=== PATIENT | male | born 1945 | race Asian ===

== ENCOUNTER 2017-02-04 13:58 | Outpatient (CLI) | payer OTHER ==
[2017-02-04 15:06] LABS: PLATELET COUNT 213 K/uL (142-355)
[2017-02-04 15:20] LABS: POTASSIUM 4.1 mmol/L (3.6-5.2); SODIUM 142 mmol/L (136-145)
== END 2017-02-04 15:30 | disposition home or self-care (01) ==
LOC: LABW 13:58
DX: E11.9 Type 2 diabetes mellitus without complications (principal); I50.9 Heart failure, unspecified; I73.89 Other specified peripheral vascular diseases
CPT/HCPCS: 36415; 80053; 80061; 83036; 83880; 85027

== ENCOUNTER 2017-04-08 16:17 | Emergency (ER) | payer OTHER ==
[~2017-04-08] VITALS: Ht 190.5 cm; Wt 95.3 kg
[2017-04-08 17:31] LABS: PLATELET COUNT 215 K/uL (142-355)
[2017-04-08 17:39] LABS: POTASSIUM 3.9 mmol/L (3.6-5.2)
[2017-04-08 18:03] LABS: PARTIAL THROMBOPLASTIN TIME 39.9 SECONDS (24.5-33.6)
[2017-04-08 18:55] VITALS: BP 166/78; TEMP 98.4
== END 2017-04-08 18:56 | disposition home or self-care (01) ==
LOC: ED 16:17
DX: D68.69 Other thrombophilia (principal); R79.1 Abnormal coagulation profile
CPT/HCPCS: 80053; 81000; 85027; 85610; 85730; 96372; 99283

== ENCOUNTER 2017-07-19 15:37 | Outpatient (CLI) | payer OTHER | END 2017-07-19 19:43 | disposition home or self-care (01) | LOC: LABW 15:37 | DX: N40.0 Benign prostatic hyperplasia without lower urinary tract symptoms (principal); Z12.5 Encounter for screening for malignant neoplasm of prostate | CPT/HCPCS: 84153 ==

== ENCOUNTER 2017-12-30 13:13 | Outpatient (CLI) | payer OTHER ==
[2017-12-30 14:01] LABS: POTASSIUM 4.4 mmol/L (3.6-5.2)
== END 2017-12-30 19:40 | disposition home or self-care (01) ==
LOC: LABW 13:13
PROVIDERS: Specialist
DX: Z79.899 Other long term (current) drug therapy (principal); Z51.81 Encounter for therapeutic drug level monitoring; I10 Essential (primary) hypertension
CPT/HCPCS: 36415; 80048

== ENCOUNTER 2018-02-05 11:51 | Emergency (ER) | payer OTHER ==
[~2018-02-05] VITALS: Ht 190.5 cm; Wt 97.5 kg
[2018-02-05 12:54] LABS: PLATELET COUNT 185 K/uL (142-355)
[2018-02-05 13:00] LABS: POTASSIUM 4.6 mmol/L (3.6-5.2)
[2018-02-05 15:15] VITALS: BP 138/57; TEMP 98.1
== END 2018-02-05 15:15 | disposition home or self-care (01) ==
LOC: ED 11:51
PROVIDERS: Allergy & Immunology
DX: E11.65 Type 2 diabetes mellitus with hyperglycemia (principal); R00.1 Bradycardia, unspecified; I45.10 Unspecified right bundle-branch block
CPT/HCPCS: 80053; 81000; 85027; 93005; 96361; 96365; 96375; 99284; J1815

== ENCOUNTER 2018-04-12 12:33 | Outpatient (CLI) | payer OTHER | END 2018-04-12 22:45 | disposition home or self-care (01) | LOC: LABW 12:33 | DX: E11.9 Type 2 diabetes mellitus without complications (principal) | CPT/HCPCS: 36415; 83036 ==

== ENCOUNTER 2018-04-19 16:36 | Outpatient (CLI) | payer OTHER | END 2018-04-19 21:28 | disposition home or self-care (01) | LOC: LABW 16:36 | DX: I48.0 Paroxysmal atrial fibrillation (principal); Z79.01 Long term (current) use of anticoagulants | CPT/HCPCS: 36415; 85610 ==

== ENCOUNTER 2018-05-24 12:07 | Outpatient (CLI) | payer OTHER | END 2018-05-24 21:07 | disposition home or self-care (01) | LOC: LABW 12:07 | DX: I48.0 Paroxysmal atrial fibrillation (principal); Z79.899 Other long term (current) drug therapy; Z79.01 Long term (current) use of anticoagulants | CPT/HCPCS: 36415; 85610 ==

== ENCOUNTER 2018-05-26 11:04 | Outpatient (CLI) | payer OTHER | END 2018-05-26 19:24 | disposition home or self-care (01) | LOC: LABW 11:04 | DX: Z79.01 Long term (current) use of anticoagulants (principal); Z79.899 Other long term (current) drug therapy | CPT/HCPCS: 36415; 85610 ==

== ENCOUNTER 2018-06-22 17:36 | Emergency (ER) | payer OTHER ==
[~2018-06-22] VITALS: Ht 190.5 cm; Wt 97.5 kg
[2018-06-22 18:42] LABS: PLATELET COUNT 241 K/uL (142-355)
[2018-06-22 18:54] LABS: POTASSIUM 3.9 mmol/L (3.6-5.2)
[2018-06-22 20:18] VITALS: BP 126/91; TEMP 98.2
== END 2018-06-22 20:15 | disposition home or self-care (01) ==
LOC: ED 17:36
PROVIDERS: Emergency Medicine
DX: E86.0 Dehydration (principal); I95.89 Other hypotension; R42 Dizziness and giddiness; I48.91 Unspecified atrial fibrillation; I45.19 Other right bundle-branch block
CPT/HCPCS: 36415; 80053; 81000; 82550; 82553; 84484; 85027; 93005; 96360; 99284; J2405

== ENCOUNTER 2018-07-08 10:14 | Outpatient (CLI) | payer OTHER | END 2018-07-08 19:13 | disposition home or self-care (01) | LOC: LABW 10:14 | DX: I48.0 Paroxysmal atrial fibrillation (principal); Z79.01 Long term (current) use of anticoagulants | CPT/HCPCS: 36415; 85610 ==

== ENCOUNTER 2018-07-11 10:41 | Outpatient (CLI) | payer OTHER ==
[2018-07-11 11:22] LABS: POTASSIUM 3.8 mmol/L (3.6-5.2)
== END 2018-07-11 22:19 | disposition home or self-care (01) ==
LOC: LABW 10:41
PROVIDERS: Nurse Practitioner Adult Health
DX: I25.10 Atherosclerotic heart disease of native coronary artery without angina pectoris (principal); Z79.899 Other long term (current) drug therapy; I48.0 Paroxysmal atrial fibrillation; Z79.01 Long term (current) use of anticoagulants
CPT/HCPCS: 36415; 80048; 85610

== ENCOUNTER 2018-08-12 22:05 | Emergency (ER) | payer OTHER ==
[~2018-08-12] VITALS: Ht 195.6 cm; Wt 104.3 kg
[2018-08-12 23:30] LABS: PLATELET COUNT 184 K/uL (142-355)
[2018-08-12 23:43] LABS: PARTIAL THROMBOPLASTIN TIME 24.3 SECONDS (24.5-33.6)
[2018-08-13 01:05] VITALS: BP 132/52; TEMP 98.1
== END 2018-08-13 01:05 | disposition home or self-care (01) ==
LOC: ED 22:05
PROVIDERS: Emergency Medicine
DX: E11.9 Type 2 diabetes mellitus without complications (principal); Z79.4 Long term (current) use of insulin; Z91.14 Patient's other noncompliance with medication regimen; R00.1 Bradycardia, unspecified; I45.19 Other right bundle-branch block; I48.91 Unspecified atrial fibrillation; S50.811A Abrasion of right forearm, initial encounter; W18.39XA Other fall on same level, initial encounter; Y92.89 Other specified places as the place of occurrence of the external cause
CPT/HCPCS: 80053; 81000; 82550; 84484; 85027; 85610; 85730; 93005; 96372; 99283; J1815

== ENCOUNTER 2018-08-25 09:08 | Emergency (ER) | payer OTHER, MEDICARE ==
[~2018-08-25] VITALS: Ht 190.5 cm; Wt 104.3 kg
[2018-08-25 09:10] VITALS: TEMP 98.5
[2018-08-25 09:51] LABS: PLATELET COUNT 240 K/uL (142-355)
[2018-08-25 10:07] LABS: POTASSIUM 4.2 mmol/L (3.6-5.2); SODIUM 139 mmol/L (136-145)
[2018-08-25 10:08] LABS: PARTIAL THROMBOPLASTIN TIME 28.8 SECONDS (24.5-33.6)
[2018-08-25] MEDS ORDERED: LIPITOR40 MG PO (10:36)
[2018-08-25] MEDS ORDERED: AMIODARONE HYD200 MG PO (10:36)
[2018-08-25] MEDS ORDERED: SINEMET1 TA3 PO (10:42)
[2018-08-25] MEDS ORDERED: WARF10TA5 PO (10:42)
[2018-08-25] MEDS ORDERED: GABA300C2 PO (10:43)
[2018-08-25] MEDS ORDERED: HYDRALAZINE10 MG PO (10:43)
[2018-08-25] MEDS ORDERED: GLIP10TA55 PO (10:43)
[2018-08-25] MEDS ORDERED: FURO40TA93 PO (10:44)
[2018-08-25] MEDS ORDERED: LISI10TA11 PO (10:44)
[2018-08-25] MEDS ORDERED: KLOR-CON M2020 MEQ PO (10:44)
[2018-08-25] MEDS ORDERED: METFORMIN HYDR850 MG PO (10:45)
[2018-08-25] MEDS ORDERED: PROPRANOLOL80 MG PO (10:46)
[2018-08-25] MEDS ORDERED: TIZANIDINE HYDRO4 MG PO (10:46)
[2018-08-25] MEDS ORDERED: PRIM50TA4 PO (10:46)
[2018-08-25] MEDS ORDERED: MIRAPEX0.125 MG PO (10:50)
[2018-08-25] MEDS ORDERED: TOUJEO MAX300 UNIT/M SC (10:55)
[2018-08-25 16:09] VITALS: BP 107/81
== END 2018-08-25 16:09 | disposition home or self-care (01) ==
LOC: ED 09:08
PROVIDERS: Emergency Medicine
DX: I48.91 Unspecified atrial fibrillation (principal); K85.80 Other acute pancreatitis without necrosis or infection; I45.19 Other right bundle-branch block
CPT/HCPCS: 36415; 80053; 82550; 83690; 83735; 83880; 84484; 85027; 85610; 85730; 93005; 96374; 96375; 99284; J2270; J2405; J3490

== ENCOUNTER 2018-09-16 09:26 | Outpatient (CLI) | payer OTHER, MEDICARE ==
[~2018-09-16 09:26] MED LIST: AMIODARONE HYD200 MG PO; FURO40TA93 PO; GABA300C2 PO; GLIP10TA55 PO; HYDRALAZINE10 MG PO; KLOR-CON M2020 MEQ PO; LIPITOR40 MG PO; LISI10TA11 PO; METFORMIN HYDR850 MG PO; MIRAPEX0.125 MG PO; PRIM50TA4 PO; PROPRANOLOL80 MG PO; SINEMET1 TA3 PO; TIZANIDINE HYDRO4 MG PO; TOUJEO MAX300 UNIT/M SC; WARF10TA5 PO
[2018-09-16 11:21] LABS: POTASSIUM 3.8 mmol/L (3.6-5.2)
== END 2018-09-16 19:46 | disposition home or self-care (01) ==
LOC: LABW 09:26
PROVIDERS: Internal Medicine
DX: E11.9 Type 2 diabetes mellitus without complications (principal); E78.2 Mixed hyperlipidemia; I10 Essential (primary) hypertension; Z00.00 Encounter for general adult medical examination without abnormal findings
CPT/HCPCS: 36415; 80053; 80061; 82043; 82570; 83036; 83735; 84443

== ENCOUNTER 2018-09-27 07:47 | Outpatient (CLI) | payer OTHER, MEDICARE ==
[~2018-09-27] VITALS: Ht 190.5 cm; Wt 102.1 kg
== END 2018-09-27 21:04 | disposition home or self-care (01) ==
LOC: NM 07:47
DX: R07.89 Other chest pain (principal)
CPT/HCPCS: A9500; J2785

== ENCOUNTER 2018-11-11 14:11 | Emergency (ER) | payer OTHER, MEDICARE ==
[~2018-11-11] VITALS: Ht 190.5 cm; Wt 104.3 kg
[2018-11-11 14:28] VITALS: TEMP 98.1
[2018-11-11 16:00] VITALS: BP 132/72
[2018-11-11 16:29] LABS: PLATELET COUNT 208 K/uL (142-355)
[2018-11-11 16:38] LABS: POTASSIUM 4.1 mmol/L (3.6-5.2)
== END 2018-11-11 17:30 | disposition home or self-care (01) ==
LOC: ED 14:11
PROVIDERS: Emergency Medicine
DX: K52.89 Other specified noninfective gastroenteritis and colitis (principal); K29.60 Other gastritis without bleeding
CPT/HCPCS: 74022; 80053; 85027; 99283

== ENCOUNTER 2018-12-08 18:50 | Emergency (ER) | payer OTHER, MEDICARE ==
[~2018-12-08] VITALS: Ht 190.5 cm; Wt 104.3 kg
[2018-12-08 20:34] LABS: POTASSIUM 4.5 mmol/L (3.6-5.2)
[2018-12-08 21:06] LABS: PLATELET COUNT 172 K/uL (142-355)
[2018-12-08 23:40] VITALS: BP 158/70; TEMP 98.2
== END 2018-12-08 23:40 | disposition home or self-care (01) ==
LOC: ED 18:50
PROVIDERS: Student in an Organized Health Care Education/Training Program
DX: E11.65 Type 2 diabetes mellitus with hyperglycemia (principal); Z79.4 Long term (current) use of insulin; R00.1 Bradycardia, unspecified; I45.19 Other right bundle-branch block
CPT/HCPCS: 36415; 36600; 80048; 81000; 82805; 82962; 83735; 84484; 85027; 93005; 96360; 96361; 96374; 96376; 99284; J1815

== ENCOUNTER 2019-02-05 20:37 | Outpatient (CLI) | payer OTHER, MEDICARE | END 2019-02-05 20:49 | disposition short-term general hospital (02) | LOC: AMB 20:37 | DX: I47.1 Supraventricular tachycardia (principal); W18.39XA Other fall on same level, initial encounter; Y93.89 Activity, other specified; Y92.018 Other place in single-family (private) house as the place of occurrence of the external cause | CPT/HCPCS: A0425; A0427 ==

== ENCOUNTER 2019-02-05 21:03 | Emergency (ER) | payer OTHER, MEDICARE ==
[~2019-02-05] VITALS: Ht 190.5 cm; Wt 104.3 kg
[2019-02-05 21:05] VITALS: TEMP 97.7
[2019-02-05 21:12] LABS: PLATELET COUNT 210 K/uL (142-355)
[2019-02-05 22:16] LABS: PARTIAL THROMBOPLASTIN TIME 22.3 SECONDS (24.5-33.6)
[2019-02-05 22:23] LABS: POTASSIUM 3.7 mmol/L (3.6-5.2); SODIUM 139 mmol/L (136-145)
[2019-02-05 22:56] VITALS: BP 152/80
== END 2019-02-05 23:11 | disposition home or self-care (01) ==
LOC: ED 21:03
PROVIDERS: Hospitalist
DX: I47.1 Supraventricular tachycardia (principal); E11.65 Type 2 diabetes mellitus with hyperglycemia; I48.91 Unspecified atrial fibrillation; Z79.01 Long term (current) use of anticoagulants; R06.02 Shortness of breath; I45.19 Other right bundle-branch block; W18.39XA Other fall on same level, initial encounter; Y92.89 Other specified places as the place of occurrence of the external cause
CPT/HCPCS: 36415; 80053; 80320; 82550; 83880; 84484; 85027; 85610; 85730; 93005; 96372; 99284; J1815

== ENCOUNTER 2019-05-31 12:39 | Outpatient (CLI) | payer OTHER, MEDICARE ==
[2019-05-31 13:17] LABS: POTASSIUM 4.5 mmol/L (3.6-5.2)
[2019-05-31 13:20] LABS: PLATELET COUNT 184 K/uL (142-355)
== END 2019-05-31 20:03 | disposition home or self-care (01) ==
LOC: LABW 12:39
PROVIDERS: Surgery Vascular Surgery
DX: Z01.812 Encounter for preprocedural laboratory examination (principal); I70.412 Atherosclerosis of autologous vein bypass graft(s) of the extremities with intermittent claudication, left leg
CPT/HCPCS: 36415; 80048; 85027

== ENCOUNTER 2019-06-13 08:52 | Outpatient (CLI) | payer OTHER, MEDICARE | END 2019-06-13 20:06 | disposition home or self-care (01) | LOC: LABW 08:52 | PROVIDERS: Nurse Practitioner Adult Health | DX: I48.0 Paroxysmal atrial fibrillation (principal); E11.9 Type 2 diabetes mellitus without complications; I10 Essential (primary) hypertension; E55.9 Vitamin D deficiency, unspecified; E78.2 Mixed hyperlipidemia | CPT/HCPCS: 36415; 80053; 80061; 81000; 82043; 82306; 82570; 83036; 84436; 84443; 84479 ==

== ENCOUNTER 2019-09-20 10:17 | Outpatient (CLI) | payer OTHER, MEDICARE ==
[2019-09-20 11:01] LABS: POTASSIUM 3.7 mmol/L (3.6-5.2)
[2019-09-20 11:11] LABS: PLATELET COUNT 206 K/uL (142-355)
== END 2019-09-20 19:29 | disposition home or self-care (01) ==
LOC: LAB 10:17
PROVIDERS: Internal Medicine
DX: I10 Essential (primary) hypertension (principal); G25.0 Essential tremor; K21.9 Gastro-esophageal reflux disease without esophagitis; E78.2 Mixed hyperlipidemia; M25.561 Pain in right knee; E53.8 Deficiency of other specified B group vitamins; E55.9 Vitamin D deficiency, unspecified; Z79.899 Other long term (current) drug therapy
CPT/HCPCS: 80053; 82306; 82607; 83036; 85027

== ENCOUNTER 2019-11-08 13:11 | Emergency (ER) | payer OTHER, MEDICARE ==
[~2019-11-08] VITALS: Ht 190.5 cm; Wt 107.5 kg
[2019-11-08 13:55] LABS: POTASSIUM 3.9 mmol/L (3.6-5.2); SODIUM 138 mmol/L (136-145)
[2019-11-08 14:00] LABS: PLATELET COUNT 196 K/uL (142-355)
[2019-11-08 17:45] VITALS: BP 145/73; TEMP 97.3
== END 2019-11-08 17:59 | disposition home or self-care (01) ==
LOC: ED 13:11
PROVIDERS: Emergency Medicine
DX: R07.89 Other chest pain (principal)
CPT/HCPCS: 80053; 82550; 82553; 84484; 85027; 85379; 93005; 99284

== ENCOUNTER 2019-12-20 10:04 | Outpatient (CLI) | payer OTHER, MEDICARE ==
[2019-12-20 10:55] LABS: POTASSIUM 4.5 mmol/L (3.6-5.2)
== END 2019-12-20 19:47 | disposition home or self-care (01) ==
LOC: LAB 10:04
PROVIDERS: Internal Medicine
DX: E11.9 Type 2 diabetes mellitus without complications (principal); E55.9 Vitamin D deficiency, unspecified; E78.2 Mixed hyperlipidemia; I10 Essential (primary) hypertension; I48.91 Unspecified atrial fibrillation
CPT/HCPCS: 80053; 80061; 81000; 82043; 82306; 82570; 83036

== ENCOUNTER 2020-06-14 11:33 | Outpatient (CLI) | payer OTHER ==
[2020-06-14 12:04] LABS: POTASSIUM 4.4 mmol/L (3.6-5.2)
== END 2020-06-14 19:23 | disposition home or self-care (01) ==
LOC: LABW 11:33
PROVIDERS: ATTEND Nurse Practitioner Adult Health
DX: E78.2 Mixed hyperlipidemia (principal); Z79.899 Other long term (current) drug therapy; I48.0 Paroxysmal atrial fibrillation
CPT/HCPCS: 36415; 80048; 80061; 80076; 84436; 84443; 84479; 85610

== ENCOUNTER 2020-06-21 13:48 | Inpatient (IN) | payer OTHER ==
[2020-06-21] VITALS (7 sets, daily range): BP systolic 115–154; BP diastolic 55–64; TEMP 97.3–100.2; Ht 190.5 cm; Wt 104.0 kg
[~2020-06-21] VITALS: Ht 190.5 cm; Wt 104.0 kg
[2020-06-21] MEDS ORDERED: LISI20TA11 PO (13:55)
[2020-06-21] MEDS ORDERED: WARF7.5T5 PO (13:55)
[2020-06-21] MEDS ORDERED: CARDIZEM LA360 M1 PO (13:56)
[2020-06-21] MEDS ORDERED: WARF5TAB6 PO (13:57)
[2020-06-21] MEDS ORDERED: NEURONTIN 100M100 MG PO (13:59)
[2020-06-21] MEDS ORDERED: AMIODARONE PO (13:59)
[2020-06-21] MEDS ORDERED: JANUVIA100 MG PO (14:00)
[2020-06-21] MEDS ORDERED: POTASSI20 XX (14:00)
[2020-06-21] MEDS ORDERED: HYDRALAZINE25 MG PO (14:01)
[2020-06-21] MEDS ORDERED: LIPITOR40 MG PO (14:01)
[2020-06-21] MEDS ORDERED: CARV3.12 PO (14:02)
[2020-06-21 14:24] LABS: PLATELET COUNT 135 K/uL (142-355)
[2020-06-21 14:40] LABS: PARTIAL THROMBOPLASTIN TIME 25.6 SECONDS (24.5-33.6)
[2020-06-22] VITALS: BP 126/53; TEMP 99.6
[2020-06-22] MEDS ORDERED: JANTOVEN10 MG PO (01:36)
[2020-06-22] MEDS ORDERED: JANTOVEN5 MG PO (01:38)
[2020-06-22 04:00] VITALS: BP 174/92; TEMP 98
[2020-06-22 05:10] LABS: POTASSIUM 4.8 mmol/L (3.6-5.2)
[2020-06-22 05:12] LABS: PLATELET COUNT 136 K/uL (142-355)
[2020-06-22 08:00] VITALS: BP 151/72; TEMP 97.8
[2020-06-22] MEDS ORDERED: PRAMIPEXOLE0.25 MG PO (10:39)
[2020-06-22 12:00] VITALS: BP 142/59; TEMP 97.9
[2020-06-22 16:00] VITALS: BP 139/70; TEMP 97.9
[2020-06-22 20:00] VITALS: BP 133/69; TEMP 98.7
[2020-06-23] VITALS: BP 163/79; TEMP 97.7
[2020-06-23 04:00] VITALS: BP 144/71; TEMP 97.3
[2020-06-23 06:32] LABS: PLATELET COUNT 144 K/uL (142-355)
[2020-06-23 06:55] LABS: POTASSIUM 4.8 mmol/L (3.6-5.2)
[2020-06-23 08:00] VITALS: BP 149/77; TEMP 97.9
[2020-06-23] MEDS ORDERED: AZIT250T3 PO (09:57)
[2020-06-23] MEDS ORDERED: GABA300C2 PO (09:57)
[2020-06-23] MEDS ORDERED: IPRAAER INH (09:57)
[2020-06-23] MEDS ORDERED: LISI20TA11 PO (09:57)
[2020-06-23] MEDS ORDERED: ATOR20TA2 PO (09:57)
[2020-06-23] MEDS ORDERED: POTA20TA4 PO (09:57)
[2020-06-23] MEDS ORDERED: HYDR25TA57 PO (09:57)
[2020-06-23] MEDS ORDERED: ZINC220C4 PO (09:57)
[2020-06-23] MEDS ORDERED: DEXA4INJ21 PO (09:57)
[2020-06-23] MEDS ORDERED: CARV3.12 PO (09:57)
[2020-06-23] MEDS ORDERED: FURO10IN15 IV (09:57)
[2020-06-23] MEDS ORDERED: SITA50TA2 PO (09:57)
[2020-06-23] MEDS ORDERED: ASCO500T18 PO (09:57)
[2020-06-23] MEDS ORDERED: CARDIZEM CD 180 MG PO (09:57)
== END 2020-06-23 10:50 | disposition home or self-care (01) | DRG 177 ==
LOC: ED 13:48 → MED/SURG 17:00
PROVIDERS: ADMIT Hospitalist
DX: U07.1 COVID-19 (principal); J18.8 Other pneumonia, unspecified organism; R53.81 Other malaise; E86.1 Hypovolemia; I25.10 Atherosclerotic heart disease of native coronary artery without angina pectoris; I48.91 Unspecified atrial fibrillation; I11.0 Hypertensive heart disease with heart failure; I50.9 Heart failure, unspecified; F03.90 Unspecified dementia, unspecified severity, without behavioral disturbance, psychotic disturbance, mood disturbance, and anxiety; G20 Parkinson's disease; I25.2 Old myocardial infarction; E86.0 Dehydration; W18.39XA Other fall on same level, initial encounter; Y92.89 Other specified places as the place of occurrence of the external cause
CPT/HCPCS: 36415; 80048; 80053; 81000; 82962; 85027; 85610; 85730; 87635; 93005; 94760; 96372; 99282; J1100; J1650; J1815; J1885; J1940; U0003

== ENCOUNTER 2020-08-27 08:01 | Outpatient (CLI) | payer OTHER ==
[~2020-08-27 08:01] MED LIST changes: +AMIODARONE PO; +ASCO500T18 PO; +ATOR20TA2 PO; +AZIT250T3 PO; +CARDIZEM CD 180 MG PO; +CARDIZEM LA360 M1 PO; +CARV3.12 PO; +DEXA4INJ21 PO; +FURO10IN15 IV; +HYDR25TA57 PO; +HYDRALAZINE25 MG PO; +IPRAAER INH; +JANTOVEN10 MG PO; +JANTOVEN5 MG PO; +JANUVIA100 MG PO; +LISI20TA11 PO; +NEURONTIN 100M100 MG PO; +POTA20TA4 PO; +POTASSI20 XX; +PRAMIPEXOLE0.25 MG PO; +SITA50TA2 PO; +WARF5TAB6 PO; +WARF7.5T5 PO; +ZINC220C4 PO
== END 2020-08-27 19:34 | disposition home or self-care (01) ==
LOC: LABW 08:01
PROVIDERS: ATTEND Specialist
DX: I48.0 Paroxysmal atrial fibrillation (principal); Z79.899 Other long term (current) drug therapy; E78.2 Mixed hyperlipidemia
CPT/HCPCS: 36415; 80061; 80076; 84436; 84443; 84479

== ENCOUNTER 2020-09-23 10:22 | Outpatient (CLI) | payer OTHER | END 2020-09-23 21:37 | disposition home or self-care (01) | LOC: LABW 10:22 | PROVIDERS: ATTEND Internal Medicine Interventional Cardiology | DX: E78.2 Mixed hyperlipidemia (principal); Z79.899 Other long term (current) drug therapy; I48.21 Permanent atrial fibrillation | CPT/HCPCS: 36415; 80061; 80076; 84436; 84443; 84479 ==

== ENCOUNTER 2020-11-18 10:06 | Outpatient (CLI) | payer OTHER | END 2020-11-18 20:58 | disposition home or self-care (01) | LOC: LABW 10:06 | PROVIDERS: ATTEND Nurse Practitioner Adult Health | DX: I48.20 Chronic atrial fibrillation, unspecified (principal); Z51.81 Encounter for therapeutic drug level monitoring; Z79.01 Long term (current) use of anticoagulants | CPT/HCPCS: 36415; 85610 ==

== ENCOUNTER 2020-11-21 11:26 | Outpatient (CLI) | payer OTHER | END 2020-11-21 22:00 | disposition home or self-care (01) | LOC: LABW 11:26 | PROVIDERS: ATTEND Specialist | DX: Z79.01 Long term (current) use of anticoagulants (principal); I49.01 Ventricular fibrillation; I48.20 Chronic atrial fibrillation, unspecified; Z51.81 Encounter for therapeutic drug level monitoring | CPT/HCPCS: 36415; 85610 ==

== ENCOUNTER 2021-01-10 12:30 | Emergency (ER) | payer OTHER ==
[~2021-01-10] VITALS: Ht 190.5 cm; Wt 108.9 kg
[2021-01-10 12:30] VITALS: TEMP 98.8
[2021-01-10 12:55] LABS: PLATELET COUNT 193 K/uL (142-355)
[2021-01-10 13:08] LABS: POTASSIUM 4.5 mmol/L (3.6-5.2)
[2021-01-10 16:55] VITALS: BP 99/52
== END 2021-01-10 17:10 | disposition home or self-care (01) ==
LOC: ED 12:30
PROVIDERS: Family Medicine
DX: I95.89 Other hypotension (principal); R00.1 Bradycardia, unspecified; E11.65 Type 2 diabetes mellitus with hyperglycemia
CPT/HCPCS: 80053; 81000; 83880; 84484; 85027; 93005; 96360; 96361; 99284; J1815

== ENCOUNTER 2021-09-01 13:14 | Outpatient (CLI) | payer OTHER | END 2021-09-01 19:45 | disposition home or self-care (01) | LOC: MRI 13:14 | PROVIDERS: ATTEND Psychiatry & Neurology Neurology | DX: M48.02 Spinal stenosis, cervical region (principal); M48.062 Spinal stenosis, lumbar region with neurogenic claudication ==

== ENCOUNTER 2021-12-11 13:44 | Outpatient (CLI) | payer OTHER | END 2021-12-11 19:17 | disposition home or self-care (01) | LOC: MRI 13:44 | PROVIDERS: ATTEND Neurological Surgery | DX: M48.02 Spinal stenosis, cervical region (principal); F03.90 Unspecified dementia, unspecified severity, without behavioral disturbance, psychotic disturbance, mood disturbance, and anxiety ==

== ENCOUNTER 2022-01-02 16:19 | Outpatient (CLI) | payer OTHER | END 2022-01-02 20:01 | disposition home or self-care (01) | LOC: RAD 16:19 | PROVIDERS: ATTEND Internal Medicine | DX: M25.562 Pain in left knee (principal); M25.561 Pain in right knee ==

== ENCOUNTER 2022-04-04 10:04 | Outpatient (CLI) | payer OTHER | END 2022-04-04 19:20 | disposition home or self-care (01) | LOC: LABW 10:04 | PROVIDERS: ATTEND Nurse Practitioner Adult Health | DX: Z79.899 Other long term (current) drug therapy (principal) | CPT/HCPCS: 36415; 84436; 84443; 84479 ==

== ENCOUNTER 2022-09-14 13:16 | Outpatient (CLI) | payer OTHER ==
[2022-09-14 13:44] LABS: PLATELET COUNT 175 K/uL (142-355)
[2022-09-14 13:45] LABS: POTASSIUM 4.6 mmol/L (3.6-5.2)
== END 2022-09-14 21:39 | disposition home or self-care (01) ==
LOC: LABW 13:16
PROVIDERS: ATTEND Specialist
DX: I48.0 Paroxysmal atrial fibrillation (principal); E78.2 Mixed hyperlipidemia; I10 Essential (primary) hypertension
CPT/HCPCS: 36415; 80048; 85027

== ENCOUNTER 2022-11-20 17:10 | Outpatient (CLI) | payer OTHER | END 2022-11-20 19:03 | LOC: LABW 17:10 | PROVIDERS: ATTEND Nurse Practitioner Adult Health | DX: E78.2 Mixed hyperlipidemia (principal); I35.8 Other nonrheumatic aortic valve disorders; I48.0 Paroxysmal atrial fibrillation; R06.09 Other forms of dyspnea | CPT/HCPCS: 36415; 80048; 84436; 84443; 84479 ==

== ENCOUNTER 2022-11-25 12:28 | Outpatient (CLI) | payer OTHER | END 2022-11-25 18:58 | LOC: RAD 12:28 | PROVIDERS: ATTEND Nurse Practitioner Family | DX: M25.562 Pain in left knee (principal); M25.561 Pain in right knee ==

== ENCOUNTER 2022-12-24 15:16 | Inpatient (IN) | payer OTHER ==
[~2022-12-24] VITALS: Ht 190.5 cm; Wt 100.4 kg
[2022-12-24] VITALS (10 sets, daily range): BP systolic 99–194; BP diastolic 55–100; TEMP 97.5–98.6; Ht 190.5 cm; Wt 100.4 kg
[2022-12-24 16:09] LABS: PLATELET COUNT 154 K/uL (142-355)
[2022-12-24 16:21] LABS: POTASSIUM 4.4 mmol/L (3.6-5.2)
[2022-12-24 16:29] LABS: PARTIAL THROMBOPLASTIN TIME 23.4 SECONDS (23.9-36.7)
[2022-12-25] VITALS (7 sets, daily range): BP systolic 110–196; BP diastolic 52–94; TEMP 97.7–98.7
[2022-12-25 08:11] LABS: PLATELET COUNT 145 K/uL (142-355)
[2022-12-25 08:39] LABS: POTASSIUM 4.5 mmol/L (3.6-5.2)
[2022-12-25] MEDS ORDERED: ASPI325T40 PO (10:52)
[2022-12-25] MEDS ORDERED: GLIP10TA55 PO (10:53)
[2022-12-25] MEDS ORDERED: PRAVASTATIN PO (10:54)
[2022-12-25] MEDS ORDERED: MOBIC15 MG PO (10:55)
[2022-12-25] MEDS ORDERED: PRIM50TA4 PO (10:55)
[2022-12-25] MEDS ORDERED: CLOP75TA2 PO (10:56)
[2022-12-25] MEDS ORDERED: FURO40TA93 PO (10:57)
[2022-12-25] MEDS ORDERED: CLARITIN10 M1 PO (11:00)
[2022-12-25] MEDS ORDERED: VITAMIN D2000 UNI3 PO (11:01)
[2022-12-26 04:00] VITALS: BP 171/76; TEMP 98.7
[2022-12-26 07:19] LABS: PLATELET COUNT 140 K/uL (142-355)
[2022-12-26 07:33] LABS: POTASSIUM 3.8 mmol/L (3.6-5.2)
[2022-12-26 07:51] VITALS: BP 141/82; TEMP 98.3
[2022-12-26 12:00] VITALS: BP 136/74; TEMP 98.2
[2022-12-26 16:01] VITALS: BP 184/84; TEMP 98.2
[2022-12-26 20:00] VITALS: BP 185/81; TEMP 98.2
[2022-12-27] VITALS: BP 181/91; TEMP 98.4
[2022-12-27 04:00] VITALS: BP 148/75; TEMP 98.7
[2022-12-27 08:00] VITALS: BP 139/72; TEMP 99.7
[2022-12-27 11:43] VITALS: BP 165/75; TEMP 97.6
[2022-12-27 16:00] VITALS: BP 151/72; TEMP 98.4
[2022-12-27 20:02] VITALS: BP 150/81; TEMP 98.2
[2022-12-28] VITALS (7 sets, daily range): BP systolic 130–177; BP diastolic 52–89; TEMP 98.2–99.5
[2022-12-28 06:48] LABS: PLATELET COUNT 145 K/uL (142-355)
[2022-12-28 06:59] LABS: POTASSIUM 3.8 mmol/L (3.6-5.2)
[2022-12-29 03:54] VITALS: BP 133/67; TEMP 98.3
[2022-12-29 08:00] VITALS: BP 154/73; TEMP 98.8
[2022-12-29] MEDS ORDERED: APIX1TAB PO ×2 (11:35→11:36)
[2022-12-29] MEDS ORDERED: Atorvastatin Calcium PO (11:36)
[2022-12-29] MEDS ORDERED: FAMOTIDINE20 MG PO (11:37)
[2022-12-29] MEDS ORDERED: INSUINJP SC (11:42)
== END 2022-12-29 16:26 | disposition home health service (06) | DRG 299 ==
LOC: ED 15:16 → MED/SURG 18:04 → UNDODEPER 12-28 19:30 → MED/SURG 12-29 16:26
PROVIDERS: Family Medicine; ADMIT Internal Medicine; ATTEND Internal Medicine
DX: I82.492 Acute embolism and thrombosis of other specified deep vein of left lower extremity (principal); I26.99 Other pulmonary embolism without acute cor pulmonale; N17.8 Other acute kidney failure; I25.10 Atherosclerotic heart disease of native coronary artery without angina pectoris; Z79.01 Long term (current) use of anticoagulants; Z79.4 Long term (current) use of insulin; R55 Syncope and collapse; G20 Parkinson's disease; F02.80 Dementia in other diseases classified elsewhere, unspecified severity, without behavioral disturbance, psychotic disturbance, mood disturbance, and anxiety; Z86.73 Personal history of transient ischemic attack (TIA), and cerebral infarction without residual deficits; R26.81 Unsteadiness on feet; Z95.818 Presence of other cardiac implants and grafts; R00.1 Bradycardia, unspecified; N18.9 Chronic kidney disease, unspecified; I50.9 Heart failure, unspecified; K59.09 Other constipation; I11.0 Hypertensive heart disease with heart failure; I12.9 Hypertensive chronic kidney disease with stage 1 through stage 4 chronic kidney disease, or unspecified chronic kidney disease; E86.0 Dehydration; I95.89 Other hypotension; E11.65 Type 2 diabetes mellitus with hyperglycemia
CPT/HCPCS: 80048; 80053; 81002; 82550; 82948; 83036; 84484; 85027; 85379; 85610; 85730; 93005; 96360; 96361; 96372; 99284; J1650; J1815; Q9963